=== PATIENT | female | born 1975 | race African-American/Black ===

== ENCOUNTER 2017-10-12 20:46 | Emergency (ER) | payer OTHER ==
[~2017-10-12] VITALS: Ht 157.5 cm; Wt 86.2 kg
[2017-10-12] MEDS ORDERED: SODIUM CHLORIDE 0.9% 1000ML 1,000 ML IV SCH (21:00)
[2017-10-12] MEDS ORDERED: CLONIDINE HCL 0.1 MG TAB PO ONE (22:45)
[2017-10-12 23:47] VITALS: BP 137/84
== END 2017-10-12 23:53 | disposition home or self-care (01) ==
LOC: FSED 20:46
DX: R10.11 Right upper quadrant pain (principal); R10.33 Periumbilical pain; K59.00 Constipation, unspecified
CPT/HCPCS: 76705; 80053; 81003; 81025; 85025; 99284; J7030